=== PATIENT | female | born 1975 | race Caucasian/White ===

== ENCOUNTER 2016-10-29 21:31 | Emergency (ER) | payer OTHER ==
[~2016-10-29] VITALS: Wt 63.0 kg
[~2016-10-29 21:31] MED LIST: IBUP-1542 PO
--- NOTE | 2016-10-30 03:25 | RADRPT ---
PROCEDURE: Chest. CLINICAL INDICATION: Cough. TECHNIQUE: Single frontal view of the chest was obtained. COMPARISON: None. FINDINGS: The cardiac silhouette is within normal limits. The aortic arch is unremarkable. There is no focal consolidation, vascular congestion or pleural effusion. There is no pneumothorax. IMPRESSION: No evidence for active cardiopulmonary disease. .Jovanny Faye MD, Date Time Electronically viewed and signed by .Jovanny Faye MD, on 10/30/2016 03:24 .T/
[2016-10-30] MEDS ORDERED: IBUP400T22 PO (03:49)
[2016-10-30] MEDS ORDERED: ACET325T33 PO (03:49)
[2016-10-30 03:53] VITALS: TEMP 99.1
--- NOTE | 2016-10-30 20:03 | ERD ---
ER Documentation Chief Complaint Date/Time DATE: 10/30/16 TIME: 20:00 Chief Complaint Sorethroat x3 days HPI This is a 41 year old female presenting to ER for sore thorat and cough x 3 days. Patient reports dry cough x 3 days. No wheezing, chest pain, shortness of breath or difficulty breathing. Sore throat feels sharp with swallowing and patient rates pain 10/10. No difficulty swallowing or drooling. No muffled voice. ROS All systems reviewed and are negative except as per history of present illness. Medications Home Meds Active Scripts Acetaminophen* (Tylenol*) 325 Mg Tablet, 1 TAB PO Q6 Y for PAIN AND OR ELEVATED TEMP, #20 TAB Prov:JONATHAN PATEL NP 10/30/16 Ibuprofen* (Motrin*) 400 Mg Tab, 400 MG PO Q6, #15 TAB Prov:JONATHAN PATEL NP 10/30/16 Ibuprofen* (Motrin*) 600 Mg Tab, 600 MG PO Q6H Y for PAIN AND OR ELEVATED TEMP, #30 Prov:JOSE ALBERTO COULTER MD 04/11/15 Allergies Allergies: Coded Allergies: No Known Drug Allergies (Verified Allergy, Mild, 01/30/15) PMhx/Soc History of Surgery: No Anesthesia Reaction: No Hx Neurological Disorder: No Hx Respiratory Disorders: No Hx Cardiac Disorders: No Hx Psychiatric Problems: No Hx Miscellaneous Medical Probl: Yes (DEPRESSION) Hx Alcohol Use: No Hx Substance Use: No Hx Tobacco Use: No Smoking Status: Never smoker Physical Exam Vitals Vital Signs Date Time Temp Pulse Resp B/P Pulse Ox O2 Delivery O2 Flow Rate FiO2 10/30/16 03:53 99.1 10/29/16 22:14 97.8 76 20 113/56 100 Physical Exam Const: no acute distress, alert Head: Atraumatic Eyes: Normal Conjunctiva ENT: Normal External Ears, Nose and Mouth. mild erythema without exudate to posterior pharynx. TMs normal bilaterally. Neck: Full range of motion..~ No meningismus. no lymphadenopathy. Resp: Diminished lung sounds to auscultation bilaterally. no stridor or labored breathing. Cardio: Regular rate and rhythm, no murmurs Abd: Soft, non tender, non distended. Normal bowel sounds Skin: No petechiae or rashes Back: No midline or flank tenderness Ext: No cyanosis, or edema Neur: Awake and alert Psych: Normal Mood and Affect Procedures/MDM MDM: 41 year old female presents to ER for sore throat and cough x 3 days. Vitals are stable upon arrival to ED. No s/s of respiratory distress. Lung sounds are diminished thoughout lung irving on physicla exam. Chest xray reviewed by radiologist as unremarkable. Mild erythema without exudate to posterior pharynx. No difficulty swallowing or drooling. No lymphadenopathy. Differential diagnosis includes but not limited to strep pharyngitis, pneumonia , viral pharyngitis, influenza, coxsackievirus, herpes simplex virus, Ivette- Riojas virus, Respiratory syncytial virus and otitis media. Patient likely has viral pharyngitis. Patient is appropriate for outpatient management and will be discharged with prescription for Motrin. Instructed patient to follow up with primary care provider in the next 2-3 days for reassessment.Return to ED for any high fever, chest pain, difficulty breathing, shortness breath, wheezing, vomiting, diarrhea , abdominal pain or any new or worsening symptoms. Patient verbalizes understanding. All questions answered at discharge. Departure Diagnosis: Primary Impression: Pharyngitis Pharyngitis/tonsillitis etiology: unspecified etiology Qualified Code: J02.9 - Pharyngitis, unspecified etiology Condition: Stable Patient Instructions: Pharyngitis, Viral Referrals: [facility] Usted se bonner hecho un examen mdico de control que le indica que no est en calin condicin que requiera tratamiento urgente en el Departamento de Emergencia. Un estudio ms profundo y el tratamiento de rodriguez condicin pueden esperar sin ningn riesgo hasta que usted sea atendida/o en el consultorio de rodriguez mdico o calin cl dylon. Es responsabilidad suya arreglar calin katty para el seguimiento del dinesh. MANEJO DE CONDICIONES NO URGENTES EN EL FUTURO 1) Si usted tiene un mdico de atencin primaria: Usted debera llamar a rodriguez mdico de atencin primaria antes de venir al departamento de emergencia. Despus de las horas de consultorio, rodriguez doctor o rodriguez asociado/a est disponible por telfono. El mdico o enfermero de jana en el servicio telefnico puede asesorarle por steve medio para atender el problema, o dinesh contrario se puede programar calin katty. 2) Si usted no tiene un mdico de atencin primaria: Llame al mdico o clnica de referencia que aparece abajo cody las horas de consultorio para hacer calin katty para que le vean. CLINICAS: [facility] [phone] [facility] [phone] [facility] [phone] [place] [id number] [phone] [place] [id number] [phone] [facility] [phone] [address] [facility] [facility] () Usted se bonner hecho un examen mdico de control que le indica que no est en calin condicin que requiera tratamiento urgente en el Departamento de Emergencia. Un estudio ms profundo y el tratamiento de rodriguez condicin pueden esperar sin ningn riesgo hasta que usted sea atendida/o en el consultorio de rodriguez mdico o calin cl dylon. Es responsabilidad suya arreglar calin katty para el seguimiento del dinesh. MANEJO DE CONDICIONES NO URGENTES EN EL FUTURO 1) Si usted tiene un mdico de atencin primaria: Usted debera llamar a rodriguez mdico de atencin primaria antes de venir al departamento de emergencia. Despus de las horas de consultorio, rodriguez doctor o rodriguez asociado/a est disponible por telfono. El mdico o enfermero de jana en el servicio telefnico puede asesorarle por steve medio para atender el problema, o dinesh contrario se puede programar calin katty. 2) Si usted no tiene un mdico de atencin primaria: Llame al mdico o condado institucions de referencia que aparece abajo cody las horas de consultorio para hacer calin katty para que le vean. SI USTED NO PUEDE PAGAR PARA KERRIE UN MEDICO puede ir a: [facility] [address] [place] [address] [facility] [address] [place] [address] [facility] [address] [place] [address] [place] [phone] [place], [place] [phone] Additional Instructions: Call your primary care doctor TOMORROW for an appointment during the next 2-3 days.See the doctor sooner or return here if your condition worsens before your appointment time. Return to ED for any high fever, chest pain, difficulty breathing, shortness breath, wheezing, vomiting, diarrhea, abdominal pain or any new or worsening symptoms. JONATHAN PATEL NP October 30, 2016 20:03
== END 2016-10-30 03:53 | disposition home or self-care (01) ==
LOC: FTE 21:31
DX: J02.9 Acute pharyngitis, unspecified (principal); R05 Cough
CPT/HCPCS: 71010

== ENCOUNTER 2017-08-06 19:56 | Emergency (ER) | END 2017-08-06 21:55 | disposition home or self-care (01) ==

== ENCOUNTER 2017-12-19 20:33 | Emergency (ER) | END 2017-12-19 22:22 | disposition home or self-care (01) ==

== ENCOUNTER 2018-04-17 22:12 | Emergency (ER) | END 2018-04-17 23:45 | disposition home or self-care (01) ==

== ENCOUNTER 2018-12-21 22:07 | Emergency (ER) | payer OTHER ==
[~2018-12-21] VITALS: Wt 67.3 kg
[~2018-12-21 22:07] MED LIST changes: +ACET325T33 PO; +BEN25 PO; +CALAMINE TOP; +DICY10SO PO; +IBUP-1561 PO; +NAPR-985 PO; +ONDA4TAB14 PO
[2018-12-22] MEDS ORDERED: IBUPROFEN 600 MG TAB PO ONE
[2018-12-22] MEDS ORDERED: DEXAMETHASONE 10 MG/ML 1 ML INJ IM ONE
[2018-12-22] MEDS ORDERED: MED4DP PO (02:43)
[2018-12-22] MEDS ORDERED: NAPR-985 PO (02:43)
--- NOTE | 2018-12-22 02:51 | ERD ---
ER Documentation Chief Complaint Chief Complaint LEFT FOOT PAIN AND SWELLING INTERMITTENT FOR THE PAST FEW MONTHS. HPI This is a 43-year-old nondiabetic female who presents to the ED complaining of intermittent left plantar foot pain and swelling x1 month. Patient states she has been taking ibuprofen without any relief. Patient reports a skix-amh-[id number] sensation starting from the plantar aspect of her great toe that radiates up towards her left knee. She denies any recent fall. Denies any calf swelling or pain. Denies any headache, changes in vision. No loss of bowel or bladder control. No back pain. Patient has a referral to vascular specialist next month. ROS All systems reviewed and are negative except as per history of present illness. Medications Home Meds Active Scripts Naproxen* (Naprosyn*) 500 Mg Tablet, 500 MG PO BID PRN for PAIN AND/OR INFLAMMATION, #30 TAB Prov:CATHERINE CARPENTER PA-C 12/22/18 Methylprednisolone* (Medrol* DOSE PACK) 4 Mg/Dose-Pack Tab.ds.pk, 4 MG PO . DIRECTED, #1 PACKET Prov:CATHERINE CARPENTER PA-C 12/22/18 Naproxen* (Naprosyn*) 500 Mg Tablet, 500 MG PO BID PRN for PAIN AND/OR INFLAMMATION, #30 TAB Prov:DANY FISCHER PA-C 04/17/18 Diphenhydramine Hcl* (Benadryl*) 25 Mg Cap, 25 MG PO Q6 PRN for ITCHING/RASH, #30 TAB Prov:FATMATA VASQUEZ NP 12/19/17 Calamine* (Calamine*) 120 Ml Lotion, 1 APPLIC TOP Q4H for RASH, #1 EA Prov:FATMATA VASQUEZ. SALES PERFORMANCE MANAGER 12/19/17 Ibuprofen* (Motrin*) 600 Mg Tab, 600 MG PO Q6H PRN for PAIN AND OR ELEVATED TEMP, #30 TAB Prov:ALESSANDRO DURAN NP 08/06/17 Ondansetron (Ondansetron Odt) 4 Mg Tab.rapdis, 4 MG PO Q6H PRN for NAUSEA AND/OR VOMITING, #30 TAB Prov:ALESSANDRO DURAN NP 08/06/17 Dicyclomine Hcl (DICYCLOMINE HCL) 10 Mg/5 Ml Solution, 10 MG PO Q6, #120 ML Prov:ALESSANDRO DURAN BAUTISTA TFrandy NATH 08/06/17 Acetaminophen* (Tylenol*) 325 Mg Tablet, 1 TAB PO Q6 PRN for PAIN AND OR E LEVATED TEMP, #20 TAB Prov:JONATHAN PATELFrandy NATH 10/30/16 Ibuprofen* (Motrin*) 400 Mg Tab, 400 MG PO Q6, #15 TAB Prov:JONATHAN PATEL Karen NATH 10/30/16 Ibuprofen* (Motrin*) 600 Mg Tab, 600 MG PO Q6H PRN for PAIN AND OR ELEVATED TEMP, #30 Prov:JOSE ALBERTO COULTER MD 04/11/15 Allergies Allergies: Coded Allergies: No Known Drug Allergies (Verified Allergy, Mild, 12/19/17) PMhx/Soc History of Surgery: Yes (TUBAL LIGATION) Anesthesia Reaction: No Hx Neurological Disorder: No Hx Respiratory Disorders: No Hx Cardiac Disorders: No Hx Psychiatric Problems: No Hx Miscellaneous Medical Probl: Yes (DEPRESSION) Hx Alcohol Use: No Hx Substance Use: No Hx Tobacco Use: No Smoking Status: Never smoker Physical Exam Vitals Vital Signs Date Temp Pulse Resp B/P (MAP) Pulse Ox O2 O2 Flow FiO2 Time Delivery Rate 12/21/18 98.4 80 20 117/61 98 22:10 (79) Physical Exam Const: No acute distress Head: Atraumatic Eyes: Normal Conjunctiva ENT: Normal External Ears, Nose and Mouth. Neck: Full range of motion. No meningismus. Resp: Clear to auscultation bilaterally Cardio: Regular rate and rhythm, no murmurs Abd: Soft, non tender, non distended. Normal bowel sounds Skin: No petechiae or rashes Back: No midline or flank tenderness Ext: No cyanosis, or edema. Negative Homans sign. Sensation and motor to bilateral lower extremities intact. Distal pulses intact. Cap refill less than 2 seconds. Neur: Awake and alert Psych: Normal Mood and Affect Results 24 hrs Laboratory Tests Test 12/22/18 00:20 Bedside Glucose 106 mg/dL Current Medications Medications Dose Sig/Shey Start Time Status Last (Trade) Ordered Route PRN Stop Time Admin Dose Reason Admin 10 mg ONCE ONCE 12/22/18 DC 12/22/18 Dexamethasone IM 00:00 00:26 (Decadron) 12/22/18 00:01 Ibuprofen 600 mg ONCE ONCE 12/22/18 DC 12/22/18 (Motrin) PO 00:00 00:27 12/22/18 00:01 Procedures/MDM LABS & DIAGNOSTIC IMAGING: PROCEDURE: Lower extremity nonvascular ultrasound CLINICAL INDICATION: Pain and swelling plantar aspect of the left foot . FINDINGS: Images of the plantar aspect of the foot show no evidence of focal mass or abnormal fluid collection. There is no visible subcutaneous edema. IMPRESSION: 1. No visible focal abnormality of the plantar aspect of the left foot in the region of interest. ED COURSE: The patient was given IM Decadron, Motrin The medication was well tolerated and the patient had market improvement in symptoms. The patient remained stable throughout ED course. MEDICAL DECISION MAKING: This is a 43-year-old nondiabetic female who presents with atraumatic left plantar foot pain, describes as whit-tlo-xxvzxey sensation. Patient has a normal glucose here, I doubt symptoms are related to diabetes mellitus, DKA or HHS. Symptoms improved after IM Decadron and Motrin. She is neurovascularly intact without any focal neurological deficits. I have low suspicion for DVT, neurovascular injury, spinal cord compression, cauda equina, or any other emergent process at this time. Patient has a referral to vascular surgeon next month for these complaints. Strict return precautions were discussed. PRESCRIPTIONS: Medrol Dosepak, ibuprofen SPECIALIST FOLLOW UP RECOMMENDED: Vascular surgeon Patient has been advised to follow up with primary care in 1-2 days. Departure Diagnosis: Primary Impression: Peripheral neuropathy Peripheral neuropathy type: idiopathic neuropathy, unspecified Qualified Codes: G60.9 - Hereditary and idiopathic neuropathy, unspecified Condition: Stable Patient Instructions: Neuropathy, Peripheral Additional Instructions: Call your primary care doctor TOMORROW for an appointment during the next 2-4 days and bring all the information and medications prescribed. If the symptoms get worse and your provider is unavailable, return to the Emergency Department immediately. CATHERINE CARPENTER PA-C Dec 22, 2018 02:51
[2018-12-22 02:52] VITALS: BP 101/51; PULSE 58; RESP 18
== END 2018-12-22 02:53 | disposition home or self-care (01) ==
LOC: FTE 22:07
DX: G60.9 Hereditary and idiopathic neuropathy, unspecified (principal)
CPT/HCPCS: 76536; 82962; 96372; J1100; Z7502; Z7610